=== PATIENT | female | born 1985 | race Caucasian/White ===

== ENCOUNTER 2021-01-30 23:21 | Outpatient (REF) | payer OTHER, SELFPAY ==
[2021-01-30 23:59] LABS: COVID-19 Test Negative (Negative)
== END 2021-01-30 23:22 | disposition home or self-care (01) ==
LOC: HO.LAB 23:21
PROVIDERS: Visit Provider Internal Medicine
DX: Z20.822 Contact with and (suspected) exposure to COVID-19 (principal)
CPT/HCPCS: 36415; 87635

== ENCOUNTER 2023-06-06 08:20 | Emergency (ER) | payer OTHER, SELFPAY ==
[2023-06-06 08:20] VITALS: BP 163/99; PULSE 104; RESP 18; TEMP 36.6; O2SAT 97; BMI 17.8
--- NOTE | 2023-06-06 08:55 | ED.GENADULT ---
HPI - General Adult General Chief complaint: Upper Respiratory Symptoms Stated complaint: sore throat Time Seen by Provider: 06/06/23 08:54 Source: patient and RN notes reviewed Mode of arrival: ambulatory Limitations: no limitations History of Present Illness HPI narrative: This is a 37-year-old female, with no significant past medical history, presenting to the emergency department for evaluation of sore throat since yesterday. Patient states that she has a history of recurrent strep, last episode was several months ago. She states that at times her rapid strep tests are negative however the throat cultures become positive with unusual strep strains. Patient denies any headaches, fevers, chills difficulty swallowing, cough, body aches, shortness of breath, abdominal pain, nausea, vomiting or diarrhea. She works as a nurse here. She has been taking ibuprofen and Tylenol for her symptoms which has provided her with minimal relief. No other complaints or concerns at this time. MD complaint: Sore throat Onset (ago): day(s) Radiation: non-radiation Severity: moderate Pain Consistency: constant Relieving factors: none Exacerbating factors: none Associated symptoms: denies other symptoms Treatments prior to arrival: NSAID Related Data Allergies Allergy/AdvReac Type Severity Reaction Status Date / Time lisinopril [LISINOPRIL] Allergy Unknown UNKNOWN Unverified 06/19/20 17:07 penicillin V Allergy Unknown Verified 01/17/18 00:00 Penicillins [PCN] Allergy Unknown RASH Unverified 06/19/20 17:07 Sulfa (Sulfonamide Allergy Unknown Verified 01/17/18 00:00 Antibiotics) sulfamethoxazole Allergy Unknown RASH Unverified 06/19/20 17:07 [From BACTRIM] trimethoprim [From BACTRIM] Allergy Unknown RASH Unverified 06/19/20 17:07 Review of Systems Review of Systems: Yes all other systems are reviewed and are negative Constitutional: Constitutional: Reports as per [facility] Past Medical History Attestation statement: The following information was validated with the patient. Social History Social History Advance Directives: No Physical Exam ED Vital Signs: Vital Signs - 24 hr 06/06/23 08:20 Temperature 98 F Pulse Rate 104 H Respiratory Rate 18 Blood Pressure 163/99 H Pulse Oximetry 97 Oxygen Delivery Method Room Air BMI result Body Mass Index 17.8 Const General: cooperative, comfortable and no acute distress Orientation/consciousness: patient oriented x3 Limitations: no limitations HENMT Other: Oropharynx is mildly erythematous, no tonsillar hypertrophy or exudates noted. Uvula is midline. Tolerating secretions well without any difficulty. No trismus, drooling or dysphonia Head: Yes normal to inspection, Yes normocephalic and Yes atraumatic Ears: hearing grossly normal bilaterally and TM's normal bilaterally General nose exam: Normal external nose present Face and sinus: Yes normal facial exam Mouth: Normal oral and palatal mucosa present, oropharynx normal and moist mucous membranes Throat: Yes posterior oropharynx normal Eyes General: appearance normal, both eyes and all related structures Eyelids: Yes eyelids normal Conjunctivae: conjunctivae normal Sclerae: sclerae normal Pupils: Equal, round and reactive pupils present EOM: EOMs intact bilaterally Neck Neck: Yes normal visual inspection, Yes full ROM and Yes no lymphadenopathy Lymphatic: no lymphadenopathy noted Chest Chest palpation & inspection: normal inspection of the chest Resp Effort & Inspection: normal respiratory effort and able to speak in complete sentences Auscultation: clear to auscultation bilaterally, no crackles, no rales, no rhonchi and no wheezes Cardio Rate: regular rate Rhythm: regular rhythm Heart sounds: S1 normal heart sound present and S2 normal heart sound present GI Inspection: Yes normal to inspection Skin General skin exam: no rashes or lesions noted Trauma: no lacerations or abrasions Wounds: no wounds Neuro General: patient oriented x3 and moves all extremities Cranial nerves: Yes Equal, round and reactive pupils present Extrem General: Yes normal to inspection Right upper extremity: normal to inspection Left upper extremity: normal to inspection Right lower extremity: normal to inspection Left lower extremity: normal to inspection Course Reevaluation(s) Reevaluation #1: Viral swabs are negative. Discussed results with patient. Discharge with instructions on taking ibuprofen Tylenol as directed, saltwater gargles, tea with honey, soups. Discussed return precautions any new or worsening symptoms occur. Patient understands agrees with plan. Patient stable for discharge. Time: 10:36 Medications Administered Discontinued Medications Generic Name Dose Route Start Last Admin Trade Name Freq PRN Reason Stop Dose Admin Acetaminophen 650 mg 06/06/23 09:02 06/06/23 09:20 Acetaminophen 325 Mg Tablet PO 06/06/23 09:03 650 mg ONCE ONE Administration Medical Decision Making Medical Decision Making [facility] Narrative: 37-year-old female presenting to the emergency department for evaluation of sore throat since yesterday. On arrival, patient's blood pressure 163/99, pulse 104, patient is afebrile. On examination, patient is nontoxic appearing, speaking in full sentences without any difficulty. Oropharynx is mildly erythematous, no tonsillar hypertrophy or exudates. Differential diagnosis these included strep pharyngitis, peritonsillar abscess, viral syndrome, COVID. Less likely peritonsillar abscess or mass given presentation of present illness. Plan: Medicate with Tylenol, COVID, flu, RSV, strep swab collected. Given patient has history of unusual strep strains, will collect throat culture as well. Differential Diagnosis Differential Diagnoses: The differential diagnosis associated with the presentation includes See above Lab Data [facility] Lab Attestation statement: I reviewed the patient's lab results. Labs: Lab Results 06/06/23 06/06/23 Range/Units 09:16 09:16 Influenza Type A (PCR) NEGATIVE (Negative) Influenza Type B (PCR) NEGATIVE (Negative) RSV RNA Qual (PCR) NEGATIVE (Negative) SARS-CoV-2 RNA (RT-PCR) NEGATIVE (Negative) S. pyogenes GrpA ELIUD Negative (Negative) Discharge Plan Discharge Clinical Impression: Pharyngitis Patient Disposition: Home, Self-Care Instructions: Pharyngitis (ED) Additional Instructions: You tested negative for COVID, flu, RSV, and strep today. Your sending your throat culture out for further testing, we will call with any abnormal results. Please gargle with salt water, tea with honey, warm soups, and take ibuprofen and Tylenol as needed for your pain and symptoms. If any new or worsening symptoms occur, including but not limited to fevers, chills, difficulty swallowing or breathing, please return for re-evaluation. Stand Alone Forms: Work/School Release
[2023-06-06] MEDS: Acetaminophen 325 MG TABLET 650 MG PO (09:20)
--- NOTE | 2023-06-06 09:29 | PC.NURSE ---
swabs obtained and sent, medicated per the MAR for pain
[2023-06-06 09:36] LABS: IDNOW Serial# 08D9AD1C; Strep A Nucleic Acid Negative (Negative)
[2023-06-06 10:05] LABS: Influenza A PCR NEGATIVE (Negative); Influenza B PCR NEGATIVE (Negative); Resp Syncy Virus RNA Qual PCR NEGATIVE (Negative); SARS COV2 PCR INHOUSE NEGATIVE (Negative)
[2023-06-06 10:42] VITALS: BP 145/93; PULSE 64; RESP 16; TEMP 36.8; O2SAT 99
== END 2023-06-06 10:43 | disposition home or self-care (01) ==
PROVIDERS: Physician Assistant Medical; Emergency Provider Emergency Medicine
DX: J02.9 Acute pharyngitis, unspecified (principal); Z20.822 Contact with and (suspected) exposure to COVID-19; Z20.828 Contact with and (suspected) exposure to other viral communicable diseases; Z79.899 Other long term (current) drug therapy
CPT/HCPCS: 0241U; 87070; 87651; 99283